=== PATIENT | female | born 1975 | race Caucasian/White ===

== ENCOUNTER → 2016-06-07 | Outpatient (CLI) | payer OTHER ==
[~2016-06-07] MED LIST: ATIVAN GENERIC0.5 MG PO; FLAGYL500 M1 PO; KEFLEX 500MG.500 MG PO; LISINOPRIL5 MG PO; ZYRTEC ALLERGY10 MG PO
[2016-06-07 16:38] LABS: HEMOGLOBIN 11.7 g/dL (12.2-16.2); LYMPH # 2.2 K/mm3 (0.7-4.5); LYMPH % 29.1 % (10-50.0)
[2016-06-07 22:15] LABS: BUN 9 mg/dL (7-18)
[2016-06-07 22:25] LABS: GFR (ESTIMATED) 110 ML/MIN (59-)
== END ==
LOC: LAB 16:10
PROVIDERS: Emergency Medicine
DX: R60.9 Edema, unspecified (principal)